=== PATIENT | female | born 1945 | race Caucasian/White ===

== ENCOUNTER 2016-08-20 18:12 | Emergency (ER) | payer SELFPAY ==
[~2016-08-20 18:12] MED LIST: ASPIRIN325 M3 PO; COZAAR50 M1 PO; EYE GTTS; FLEXERIL10 MG PO; MOBIC15 M2 PO; MYRBETRIQ50 M1 PO; NAPROSYN500 M1 PO; NAPROXEN500 MG PO; NORCO 5/325 TAB1 TAB PO; PROAIR HFA8.5 GM IH; TOVIAZ8 M1 PO; TRAMADOL HCL50 M2 PO; ULTRAM50 M1 PO
[2016-08-20] MEDS ORDERED: ULTRAM50 M1 PO (20:33)
== END 2016-08-20 20:40 ==
LOC: EDMED 18:12
DX: S80.02XA Contusion of left knee, initial encounter (principal); W01.198A Fall on same level from slipping, tripping and stumbling with subsequent striking against other object, initial encounter; Y92.69 Other specified industrial and construction area as the place of occurrence of the external cause; Y99.0 Civilian activity done for income or pay
CPT/HCPCS: J7030

== ENCOUNTER 2016-08-29 15:36 | Emergency (ER) | payer SELFPAY ==
[2016-08-29] MEDS ORDERED: TRAMADOL HCL50 M2 PO (20:05)
== END 2016-08-29 20:18 ==
LOC: EDMED 15:36
DX: S80.02XA Contusion of left knee, initial encounter (principal); S50.02XA Contusion of left elbow, initial encounter; J45.909 Unspecified asthma, uncomplicated; I10 Essential (primary) hypertension; Z79.51 Long term (current) use of inhaled steroids; Z79.899 Other long term (current) drug therapy; W19.XXXA Unspecified fall, initial encounter